=== PATIENT | male | born 1945 | race Caucasian/White ===

== ENCOUNTER 2016-11-14 18:19 | Inpatient (IN) | payer OTHER, BC ==
[~2016-11-14] VITALS: Ht 177.8 cm; Wt 84.0 kg
[~2016-11-14 18:19] MED LIST: ADVAIR HFA120 INHALA IH; ALBUTEROL2.5 MG/3 M IH; ALEVE220 MG PO; ALL DAY ALLERGY10 M2 PO; ALPHAGAN 0100 DROP/5 LEFT EYE; ALPHAGAN P100 DROP/5 LEFT EYE; AMBIEN5 MG PO; ASPIR 8181 M1 PO; ATROVENT 00.5 MG/2.5 IH; AZITHROMYCIN500 M1 PO; Advair HFA 115/21 IH; Ambien PO; CARDIZEM LA180 MG PO; CARDIZEM LA360 MG PO; COMBIVENT RESPIM4 GM IH; COMBIVENT200 INHALA IH; COSOPT EYE DROPS5 ML LEFT EYE; Cardizem CD,Cartia X PO; Colace PO; DAILY MULTIVIT1 EAC1 PO; DESYREL100 MG PO; DILTIAZEM 24HR180 MG; DUONEB 2.5-0.5 M3 ML AEROSOL; Ecotrin PO; FLONASE16 G1 BOTH NARES; Folvite PO; GLUCAGEN1 MG IM/SC; GUAIFENESIN200 M2 PO; HYTRIN2 MG PO; HYTRIN5 MG PO; IBUPROFEN400 MG PO; KLOR-CON 1010 ME1 PO; LISINOPRIL20 MG PO; Levaquin PO; Lovenox SC; MAGNESIUM500 MG PO; Maalox, Mylanta PO; NEUTRA PHOS PACKET; NICOTINE PATCH1 EAC2 TD; NOVOLOG PE100 UNITS/ SC; PERCOCET 5/31 TABLET PO; POTASSIUM CHLO20 ME1 PO; PRAZOSIN HCL5 MG PO; PREDNISOLONE AC15 ML LEFT EYE; PREDNISONE20 MG PO; PRILOSEC20 MG PO; Percocet 5/325,Endoc PO; REMERON45 MG PO; SINGULAIR10 MG PO; SPIRIVA RESPIMAT4 GM IH; ST. JOSEPH ASP325 MG PO; SYMBICORT60 INHALA1 IH; Singulair PO; Symbicort 80-4.5 mcg IH; TERAZOSIN HCL2 MG PO; TRAZODONE HCL100 MG PO; TYLENOL REGULA325 MG PO; Theragran PO; Thiamine,Vitamin B1 PO; VOLTAREN 0.1%2.5 ML LEFT EYE; ZYRTEC10 M2 PO; [UNRECOGNIZED DRUG - OTHER] PO
[2016-11-14 18:56] LABS: HEMATOCRIT 37.4 % (38.0-50.0); MCH 29.7 PG (29.0-34.0); MCV 84.8 FL (86-99); MEAN PLAT.VOLUME 10.3 uM^3 (9.0-12.4); PLATELET COUNT 153 K/uL (156-360); RBC DIS.WIDTH-CV 13.1 % (11.8-14.6); RBC DIS.WIDTH-SD 41.1 % (39-53); RED BLOOD COUNT 4.41 M/uL (4.00-5.50)
[2016-11-14 19:03] LABS: CHLORIDE 101 mEq/L (99-109); POTASSIUM 4.1 mEq/L (3.7-5.4); SODIUM 132 mEq/L (136-147)
[2016-11-14 19:05] LABS: GLUCOSE 116 mg/dL (70-99)
[2016-11-14 19:06] LABS: ANION GAP 13 MEQ/L (2-14)
[2016-11-14 19:09] LABS: GFR ESTIMATE (CALCULATED) > 59 mL/min/
[2016-11-14 19:10] LABS: UREA NITROGEN (BUN) 8 mg/dL (9-23)
[2016-11-14 19:16] LABS: TROP-I INTERPRETATION NEGATIVE; TROPONIN-I < 0.01 ng/mL (0.0-0.30)
[2016-11-14] MEDS ORDERED: SPIRIVA RESPIMAT4 GM IH (22:18)
[2016-11-14] MEDS ORDERED: ADVAIR HFA120 INHAL1 IH (22:20)
[2016-11-15] VITALS (8 sets, daily range): BP systolic 114–156; BP diastolic 57–78
[2016-11-15 00:23] LABS: TOTAL BILIRUBIN 0.4 mg/dL (0.0-1.0)
[2016-11-15 00:24] LABS: ALKALINE PHOSPHATASE 41 IU/L (3-129)
[2016-11-15 00:26] LABS: DIRECT BILIRUBIN 0.2 mg/dL (0.0-0.3)
[2016-11-15 06:41] LABS: EOSINOPHIL (%) 0 % (0-5); HEMATOCRIT 40.8 % (38.0-50.0); IMMATURE GRANULOCYTE (%) 0.7 % (0.0-0.7); LYMPHOCYTE COUNT 0.8 K/uL (1.0-2.8); MCH 29.1 PG (29.0-34.0); MCHC 34.1 G/DL (30.0-36.0); MCV 85.4 FL (86-99); MEAN PLAT.VOLUME 10.3 uM^3 (9.0-12.4); MONOCYTE (%) 3.5 % (3-12); MONOCYTE COUNT 0.2 K/uL (0-0.8); NEUTROPHIL (%) 83.1 % (45-76); PLATELET COUNT 157 K/uL (156-360); RBC DIS.WIDTH-CV 13.2 % (11.8-14.6); RBC DIS.WIDTH-SD 41.1 % (39-53); RED BLOOD COUNT 4.78 M/uL (4.00-5.50); WHITE BLOOD COUNT 6.1 K/uL (4.1-10.2)
[2016-11-15 07:05] LABS: ANION GAP 13 MEQ/L (2-14); CHLORIDE 100 MEQ/L (99-109); GFR ESTIMATE (CALCULATED) > 59 mL/min/; GLUCOSE 151 mg/dL (70-99); POTASSIUM 4.5 MEQ/L (3.7-5.4); SAMPLE HEMOLYSIS CHECK 0; SAMPLE ICTERIC CHECK 0; SAMPLE LIPEMIA CHECK 0; SODIUM 134 MEQ/L (136-147); UREA NITROGEN (BUN) 10 mg/dL (9-23)
[2016-11-16 04:09] VITALS: BP 129/70
[2016-11-16 07:28] VITALS: BP 134/73
[2016-11-16 08:25] LABS: INTERNAL CONTROL VALID? YES
[2016-11-16 11:28] VITALS: BP 128/76
[2016-11-16 15:12] VITALS: BP 120/68
[2016-11-16 19:45] VITALS: BP 132/647
[2016-11-17 00:12] VITALS: BP 118/59
[2016-11-17 06:02] LABS: EOSINOPHIL (%) 0 % (0-5); IMMATURE GRANULOCYTE (%) 0.9 % (0.0-0.7); IMMATURE GRANULOCYTE COUNT 0.1 K/uL; INSTRUMENT ABS NEUTROPHIL CT 11.7 K/uL; LYMPHOCYTE COUNT 0.5 K/uL (1.0-2.8); MCHC 35.3 G/DL (30.0-36.0); MCV 85.2 FL (86-99); MEAN PLAT.VOLUME 10.8 uM^3 (9.0-12.4); MONOCYTE (%) 2.6 % (3-12); MONOCYTE COUNT 0.3 K/uL (0-0.8); NEUTROPHIL (%) 92.5 % (45-76); NEUTROPHIL COUNT 11.7 K/uL (1.8-6.4); PLATELET COUNT 146 K/uL (156-360); RBC DIS.WIDTH-CV 13.2 % (11.8-14.6); RBC DIS.WIDTH-SD 41.2 % (39-53); RED BLOOD COUNT 4.46 M/uL (4.00-5.50); WHITE BLOOD COUNT 12.7 K/uL (4.1-10.2)
[2016-11-17 06:24] LABS: ANION GAP 11 MEQ/L (2-14); CHLORIDE 102 MEQ/L (99-109); GFR ESTIMATE (CALCULATED) > 59 mL/min/; GLUCOSE 187 mg/dL (70-99); POTASSIUM 4.3 MEQ/L (3.7-5.4); SAMPLE HEMOLYSIS CHECK 1; SAMPLE ICTERIC CHECK 0; SAMPLE LIPEMIA CHECK 0; SODIUM 135 MEQ/L (136-147); UREA NITROGEN (BUN) 11 mg/dL (9-23)
[2016-11-17 08:00] VITALS: BP 144/77
[2016-11-17 10:58] VITALS: BP 139/66
[2016-11-17 14:57] VITALS: BP 132/67
[2016-11-17 19:38] VITALS: BP 134/71
[2016-11-17 23:51] VITALS: BP 136/73
[2016-11-18 03:17] VITALS: BP 125/69
[2016-11-18 05:51] LABS: EOSINOPHIL (%) 0 % (0-5); HEMATOCRIT 39.5 % (38.0-50.0); IMMATURE GRANULOCYTE (%) 1.1 % (0.0-0.7); IMMATURE GRANULOCYTE COUNT 0.1 K/uL; INSTRUMENT ABS NEUTROPHIL CT 9.3 K/uL; LYMPHOCYTE COUNT 0.5 K/uL (1.0-2.8); MCH 29.2 PG (29.0-34.0); MCHC 34.2 G/DL (30.0-36.0); MCV 85.5 FL (86-99); MEAN PLAT.VOLUME 10.7 uM^3 (9.0-12.4); MONOCYTE (%) 3.4 % (3-12); MONOCYTE COUNT 0.4 K/uL (0-0.8); NEUTROPHIL COUNT 9.3 K/uL (1.8-6.4); PLATELET COUNT 150 K/uL (156-360); RBC DIS.WIDTH-CV 13.2 % (11.8-14.6); RBC DIS.WIDTH-SD 41.1 % (39-53); RED BLOOD COUNT 4.62 M/uL (4.00-5.50); WHITE BLOOD COUNT 10.2 K/uL (4.1-10.2)
[2016-11-18 06:12] LABS: ANION GAP 8 MEQ/L (2-14); CHLORIDE 103 MEQ/L (99-109); GFR ESTIMATE (CALCULATED) > 59 mL/min/; GLUCOSE 193 mg/dL (70-99); POTASSIUM 4.3 MEQ/L (3.7-5.4); SAMPLE HEMOLYSIS CHECK 0; SAMPLE ICTERIC CHECK 0; SAMPLE LIPEMIA CHECK 0; SODIUM 138 MEQ/L (136-147); UREA NITROGEN (BUN) 12 mg/dL (9-23)
[2016-11-18 07:32] VITALS: BP 155/80
[2016-11-18 15:09] VITALS: BP 141/71
[2016-11-19 00:11] VITALS: BP 135/74
[2016-11-19 05:37] LABS: EOSINOPHIL (%) 0 % (0-5); HEMATOCRIT 38.1 % (38.0-50.0); IMMATURE GRANULOCYTE (%) 0.7 % (0.0-0.7); IMMATURE GRANULOCYTE COUNT 0.1 K/uL; INSTRUMENT ABS NEUTROPHIL CT 8.4 K/uL; LYMPHOCYTE COUNT 0.5 K/uL (1.0-2.8); MCH 31.2 PG (29.0-34.0); MCHC 36.2 G/DL (30.0-36.0); MEAN PLAT.VOLUME 10.9 uM^3 (9.0-12.4); MONOCYTE (%) 4.4 % (3-12); MONOCYTE COUNT 0.4 K/uL (0-0.8); NEUTROPHIL (%) 89.8 % (45-76); NEUTROPHIL COUNT 8.4 K/uL (1.8-6.4); PLATELET COUNT 132 K/uL (156-360); RBC DIS.WIDTH-CV 13.2 % (11.8-14.6); RBC DIS.WIDTH-SD 41.5 % (39-53); RED BLOOD COUNT 4.43 M/uL (4.00-5.50); WHITE BLOOD COUNT 9.4 K/uL (4.1-10.2)
[2016-11-19 06:32] LABS: ANION GAP 10 MEQ/L (2-14); CHLORIDE 100 MEQ/L (99-109); GFR ESTIMATE (CALCULATED) > 59 mL/min/; GLUCOSE 217 mg/dL (70-99); POTASSIUM 3.8 MEQ/L (3.7-5.4); SAMPLE HEMOLYSIS CHECK 0; SAMPLE ICTERIC CHECK 0; SAMPLE LIPEMIA CHECK 0; SODIUM 137 MEQ/L (136-147); UREA NITROGEN (BUN) 14 mg/dL (9-23)
[2016-11-19 07:22] VITALS: BP 157/79
[2016-11-19] MEDS ORDERED: PREDNISONE10 MG PO (11:06)
[2016-11-19 15:02] VITALS: BP 152/70
== END 2016-11-19 16:36 | disposition home or self-care (01) | DRG 190 ==
LOC: EME 18:19 → EDOF 23:33 → 5WEST 11-15 00:31 → 5SOUTH 11-15 08:07 → 5WEST 11-15 08:07 → 5SOUTH 11-15 20:51
PROVIDERS: Hospitalist; Student in an Organized Health Care Education/Training Program
PROC: 02HV33Z Insertion of Infusion Device into Superior Vena Cava, Percutaneous Approach (ICD-10-PCS; principal; 2016-11-15)
DX: J44.1 Chronic obstructive pulmonary disease with (acute) exacerbation (principal); I10 Essential (primary) hypertension; F32.9 Major depressive disorder, single episode, unspecified; K21.9 Gastro-esophageal reflux disease without esophagitis; J15.1 Pneumonia due to Pseudomonas; F17.210 Nicotine dependence, cigarettes, uncomplicated; J44.0 Chronic obstructive pulmonary disease with (acute) lower respiratory infection; G89.4 Chronic pain syndrome; F43.10 Post-traumatic stress disorder, unspecified; Z87.01 Personal history of pneumonia (recurrent); M19.90 Unspecified osteoarthritis, unspecified site; R06.82 Tachypnea, not elsewhere classified; Z81.1 Family history of alcohol abuse and dependence; N40.0 Benign prostatic hyperplasia without lower urinary tract symptoms; F10.21 Alcohol dependence, in remission
CPT/HCPCS: 71010; 80048; 80076; 80200; 84484; 85025; 85027; 87040; 87070; 87077; 87186; 87205; 87449; 93005; 94640; 94640 76; 94644; 94760; 94799; 99281; 99285; C1753; G0378; J0692; J0696; J1644; J1956; J2920; J2930; J3260; J7030; J7050; J7512; S0073

== ENCOUNTER 2016-11-26 09:22 | Emergency (ER) | payer OTHER, BC ==
[~2016-11-26] VITALS: Ht 180.3 cm; Wt 78.2 kg
[~2016-11-26 09:22] MED LIST changes: +ADVAIR HFA120 INHAL1 IH; +PREDNISONE10 MG PO
[2016-11-26 10:35] LABS: EOSINOPHIL (%) 0.4 % (0-5); IMMATURE GRANULOCYTE (%) 0.5 % (0.0-0.7); IMMATURE GRANULOCYTE COUNT 0.1 K/uL; INSTRUMENT ABS NEUTROPHIL CT 6.3 K/uL; LYMPHOCYTE COUNT 2.2 K/uL (1.0-2.8); MCH 29.4 PG (29.0-34.0); MCHC 35.3 G/DL (30.0-36.0); MCV 83.3 FL (86-99); MEAN PLAT.VOLUME 10.4 uM^3 (9.0-12.4); MONOCYTE (%) 6.3 % (3-12); MONOCYTE COUNT 0.6 K/uL (0-0.8); NEUTROPHIL (%) 68.8 % (45-76); NEUTROPHIL COUNT 6.3 K/uL (1.8-6.4); PLATELET COUNT 131 K/uL (156-360); RBC DIS.WIDTH-CV 13.2 % (11.8-14.6); WHITE BLOOD COUNT 9.2 K/uL (4.1-10.2)
[2016-11-26 10:45] LABS: CHLORIDE 99 mEq/L (99-109); POTASSIUM 3.8 mEq/L (3.7-5.4); SODIUM 133 mEq/L (136-147)
[2016-11-26 10:49] LABS: ANION GAP 11 MEQ/L (2-14)
[2016-11-26 10:50] LABS: TOTAL BILIRUBIN 0.8 mg/dL (0.0-1.0)
[2016-11-26 10:51] LABS: ALKALINE PHOSPHATASE 36 IU/L (3-129); GFR ESTIMATE (CALCULATED) > 59 mL/min/
[2016-11-26 10:52] LABS: UREA NITROGEN (BUN) 8 mg/dL (9-23)
[2016-11-26 10:54] LABS: CREATINE KINASE 88 IU/L (1-294); GLUCOSE 125 mg/dL (70-99); TOTAL CK 88 IU/L (1-294)
[2016-11-26 11:01] LABS: TROP-I INTERPRETATION NEGATIVE; TROPONIN-I < 0.01 ng/mL (0.0-0.30)
[2016-11-26 11:02] LABS: CK-MB 3.3 ng/mL (0.0-4.9)
[2016-11-26] MEDS ORDERED: DELTASONE20 M1 PO (16:05)
[2016-11-26] MEDS ORDERED: ALBUTEROL2.5 MG/3 M IH (16:05)
[2016-11-26 16:30] VITALS: BP 125/85
== END 2016-11-26 16:31 | disposition home or self-care (01) ==
LOC: EME 09:22
PROVIDERS: Emergency Medicine
DX: J18.9 Pneumonia, unspecified organism (principal); J44.1 Chronic obstructive pulmonary disease with (acute) exacerbation; F17.200 Nicotine dependence, unspecified, uncomplicated; I10 Essential (primary) hypertension; K21.9 Gastro-esophageal reflux disease without esophagitis; F43.10 Post-traumatic stress disorder, unspecified; F32.9 Major depressive disorder, single episode, unspecified; Z88.0 Allergy status to penicillin; Z91.041 Radiographic dye allergy status; Z88.1 Allergy status to other antibiotic agents; Z87.438 Personal history of other diseases of male genital organs
CPT/HCPCS: 71020; 71275; 80053; 82550; 82553; 83605; 84484; 85025; 87040; 93005; 94640; 99281; 99285; J1200; J2930; J7030